=== PATIENT | female | born 1950 | race Caucasian/White ===

== ENCOUNTER 2023-08-24 09:58 | Emergency (ER) | payer BC ==
[~2023-08-24] VITALS: Ht 165.1 cm; Wt 61.2 kg
[2023-08-24 10:07] VITALS: BP_SYST 110; PULSE 69; RESP 17; TEMP 98.1; O2SAT 99
[2023-08-24] MEDS ORDERED: AUG875 PO (10:28)
[2023-08-24] MEDS: AMPICILLIN SODIUM/SULBACTAM NA 1.5 GM VIAL IM ONE (10:42)
[2023-08-24 10:50] VITALS: BP_SYST 110; PULSE 69; RESP 17; TEMP 98.1; O2SAT 99
== END 2023-08-24 10:52 | disposition home or self-care (01) ==
LOC: SED 09:58
DX: L03.113 Cellulitis of right upper limb (principal)
CPT/HCPCS: 99283; 96372; J0295